=== PATIENT | male | born 1990 | race Caucasian/White ===

== ENCOUNTER 2019-01-12 18:26 | Emergency (ER) | payer BC, OTHER ==
--- NOTE | 2019-01-12 19:06 | EDPHY ---
General Time Seen by Provider: 01/12/19 18:36 Narrative: CLINICAL IMPRESSION: Right thumb Skin avulsion ASSESSMENT/PLAN: Patient is a 29-year-old male who presents to the emergency department with complaints of a right thumb skin avulsion that occurred just prior to arrival. Patient is in no acute distress, he is not toxic appearing. Physical examination reveals an 8 mm circumferential area of complete skin avulsion, this is very superficial, there is no fat exposed. There was no evidence of deep structure involvement, neurovascular compromise, foreign body, or bony involvement. The wound was not contaminated, tetanus status was up-to-date. The wound was irrigated, Surgicel and sterile dressing placed. On repeat examination prior to discharge hemostasis has been achieved. Wound care instructions reviewed, return precautions discussed. ED PROCEDURES: Procedure: Local anesthesia. Verbal consent was obtained from the patient. The thumb skin avulsion was anesthetized with 1% lidocaine without epinephrine with complete relief of his pain. The avulsion was very superficial and 8 mm in diameter. No indication for suture repair. This was irrigated and dressed. CHIEF COMPLAINT: Right thumb skin avulsion HPI: Patient is a 29-year-old male with no significant medical history who presents to the emergency department with complaints of right thumb skin avulsion that occurred just prior to arrival. Patient reports he was cutting a cucumber with mandalin slicer and accidentally sliced the tip of his left thumb. The skin came completely off, he felt like it was "bleeding quite of it however was able to get the bleeding under control. He denies any numbness or tingling to the tip of his finger, he denies any nail bed involvement. He denies any decreased mobility. He is right handed, he is up-to-date on his tetanus. ROS: Otherwise negative, please see HPI. PHYSICAL EXAM: General Appearance: Well-developed, well-appearing and in no acute distress. Respiratory: There are no retractions, lungs are clear to auscultation. Cardiac: Regular rate and rhythm, no murmurs or gallops. Gastrointestinal: Abdomen is soft, nontender, bowel sounds normal, no masses/ hernia, no rigidity, guarding or focal peritoneal findings. Skin: Warm, dry, no rashes. There is an 8 mm superficial skin avulsion to the radial aspect of his right thumb distal pad. There is no nail involvement. Two point discrimination is intact distally. There is active losing, mildly tender to palpation. Musculoskeletal: Right thumb skin as above. Two point discrimination is intact distally. The interphalangeal joint was tested independently, full strength and full range of motion. Musculoskeletal exam otherwise unremarkable. Neuro: Alert and oriented x3, Cranial nerves 2-12 grossly intact. No focal deficit. Psych: Normal mood, normal affect. No agitation. MEDICAL DECISION MAKING: Patient was seen independently. Secondary supervising physician at time of evaluation was Dr. Dickens, he did not evaluate this patient. Diagnosis: Right thumb skin avulsion. Summary: See Assessment and Plan for summary of ED visit Decision to obtain medical records or history from someone other than the patient: No Review / Summarize previous medical records: No Discussed patient with another provider: Yes, Dr. Dickens Patient Progress: Stable, discharged. - History Smoking Status: Never smoked - Objective Vital Signs: Initial Vital Signs Temperature (C) 37 C 01/12/19 18:31 Heart Rate 62 01/12/19 18:31 Respiratory Rate 18 01/12/19 18:31 Blood Pressure 114/56 L 01/12/19 18:31 O2 Sat (%) 97 01/12/19 18:31 O2 Delivery Mode Room Air Allergies/Adverse Reactions: No Known Allergies Allergy (Verified 01/12/19 18:30) Home Medications: Medication Instructions Recorded NK [No Known Home Meds] 01/12/19 Departure - Departure Disposition: Home, Routine, Self-Care Clinical Impression: Avulsion of skin Condition: Good Instructions: Skin Avulsion (ED) Additional Instructions: DISCHARGE INSTRUCTIONS FROM YOUR PROVIDER Thank you for visiting our emergency department today. Please keep in mind that discharge from the emergency department does not mean that there is nothing wrong - it simply means that we have not identified an emergency condition that requires further evaluation or treatment in the hospital. You should always plan to follow up with primary care for re-evaluation of your condition in the next 2-3 days. Keep wound clean and dry for 48 hours. After 48 hr you may remove the outer dressing, please leave the Surgicel that will likely be attached to her finger alone. It will fall off on its own. You may take a shower, wash with regular soap and water. Reapply dressing. For pain control: You may take Tylenol, I recommend 500-1000 mg every 6-8 hours as needed. Take with food and a full glass of water. Stop taking if this is upsetting you stomach. Do not exceed 4000 mg in a 24 hr period. You may also take ibuprofen, recommend 400 mg every 6 hr. Take with food and a full glass of water. Stop taking if this upsets your stomach. Do not exceed 2400 mg in a 24 hr period. Return for signs of wound infection ie: redness, swelling, drainage, foul odor, red streaks, fever, chills, pain, bleeding, if the wound opens or for any other new, worsening or worrisome symptoms. People present with illnesses and injuries in different ways, and it is always possible that we have missed something. Again, thank you for choosing our emergency department. We hope that you feel better. Referrals: Myke Allison MD [Medical Doctor] - As per Instructions (This is a referral for a primary care provider if you do not already have 1. )
[2019-01-12 19:44] VITALS: BP 114/65
== END 2019-01-12 19:43 | disposition home or self-care (01) ==
DX: S60.311A Abrasion of right thumb, initial encounter (principal); W26.8XXA Contact with other sharp object(s), not elsewhere classified, initial encounter; Y93.G1 Activity, food preparation and clean up